=== PATIENT | male | born 1960 | race Caucasian/White ===

== ENCOUNTER 2020-02-03 02:12 | Emergency (ER) | payer SELFPAY ==
[2020-02-03 02:12] VITALS: BMI 20.6
--- NOTE | 2020-02-03 02:16 | XR_ITS ---
WS: [id number] EXAM: AP CHEST: PORTABLE UPRIGHT DATE OF EXAM: 02/03/2020, 0218 hours COMPARISON: NONE HISTORY: Patient is 59 years old with weakness in the legs. History of chronic lung disease. FINDINGS: The cardiac silhouette is normal in size. The mediastinal contours are normal. The pulmonary vas cularity is normal. Chronic lung changes are seen with slight hyperinflation. Some degree of underly ing fibrosis felt to be present. Lungs are clear of consolidation. The right costophrenic angle has b een clipped from the examination. Subacute rib fractures are seen posterior inferior lateral on the r ight. There is no effusion or pneumothorax. XR/XR chest 1V portable [id number] IMPRESSION: Chronic lung changes. No acute pulmonary disease. What appears to be subacute t o chronic right posterior lateral lower rib fractures.
--- NOTE | 2020-02-03 02:16 | CTR_ITS ---
PROCEDURE INFORMATION: Exam: CT Head Without Contrast Exam date and time: 02/03/2020 2:17 AM Age: 59 years old Clinical indication: Weakness, extremity; Bilateral; Patient HX: HX prior stroke TECHNIQUE: Imaging protocol: Computed tomography of the head without contrast. Radiation optimization: All CT scans at this facility use at least one of these dose optimization techniques: automated exposure control; mA and/or kV adjustment per patient size (includes targeted exams where dose is matched to clinical indication); or iterative reconstruction. COMPARISON: No relevant prior studies available. RADIATION DOSE METRICS: Total DLP (mGy-cm): 790.28 FINDINGS: Brain: No acute intracranial hemorrhage or mass effect. There is decreased attenuation in the periventricular white matter, likely from microvascular disease. There are small old lacunar infarcts in the basal ganglia regions bilaterally. Large old infarct predominantly involving white matter in the left frontal, parietal, and occipital regions. No definite acute infarct by CT. MRI could be more sensitive/specific for detection, as clinically directed. Ventricles: Ventricle size is normal for age. Bones/joints: No definite acute skull fracture. Sinuses: Included paranasal sinuses are essentially clear. Mastoid air cells: No significant acute finding. Vasculature: Vascular calcifications in the internal carotid and vertebral basilar systems. CT/CT head wo con* [id number] IMPRESSION: 1. No acute intracranial hemorrhage or mass effect. 2. Changes of microvascular disease, and old infarcts, details above. 3. No definite acute infarct by CT, see above. 4. Other findings discussed above. Radiation Dose CTDIVOL = (mGy): DLP = 790.28 (mGy-cm)
--- NOTE | 2020-02-03 02:17 | ECG_ITS ---
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 Measurements Intervals [place] Rate: 74 P: 79 VT: 138 QRS: 71 QRSD: 98 T: 72 QT: 395 QTc: 439 Interpretive Statements SINUS RHYTHM Early repolarization No previous ECG available for comparison Electronically Signed On 02-03-2020 22:41:51 CDT by Krish Gutierrez M.D. [id number]
--- NOTE | 2020-02-03 02:18 | W.ED.WEAKNES ---
HPI - Weakness General: Chief complaint: Weakness Stated complaint: WEAKNESS Time Seen by Provider: 02/03/20 02:12 Source: patient and EMS Mode of arrival: EMS Limitations: no limitations History of Present Illness: HPI Narrative: 59-year-old male has a history of stroke along with alcohol abuse. Patient has been at [facility] for 3 days and states he has had increased weakness over the last 3 days. He states been having difficulty walking. Patient states that he is unable to get out of his bed or walk. He has no focal deficits. Patient denies any fever. Denies any vomiting. MD Complaint: generalized weakness Associated symptoms: Denies chest pain, chills, dysuria, easy bruising, fever(s), nausea or vomiting Review of Systems Const: Denies: fever(s), chills, body aches or change in appetite Eyes: Denies: blurry vision or eye discomfort ENMT: Denies: throat pain or dental pain Card: Denies: chest pain Resp: Denies: dyspnea GI: Denies: abdominal pain, nausea, vomiting or diarrhea : Denies: dysuria Musc: Denies: neck pain or back pain Skin/Breast: Denies: rash Neuro: Reports: weakness in extremities Psych: Denies: depression Nikolay/Lymph: Denies: easy bruising All/Imm: Denies: urticaria PFSH ED PFSH: Social History Smoking and tobacco status: current every day smoker cigarettes Packs smoked per day: 1.5 Number of cigarettes per day: >20 Alcohol intake: former Desire information about alcohol rehabilitation?: No Last alcohol use date: 01/30/20 Substance/Drug Use: never Current gender identity: Male Physical Exam Const: COMMON NORMALS: no acute distress, patient oriented x3 and healthy appearing HENMT: COMMON NORMALS: normocephalic and atraumatic HEAD & SCALP: normocephalic and atraumatic Eye: COMMON NORMALS: Equal, round and reactive pupils present and EOMs intact bilaterally PUPIL: Yes Equal, round and reactive pupils present Neck/C-Spine: COMMON NORMALS: full ROM and supple Chest: COMMONS NORMALS: normal inspection of the chest and normal palpation of entire chest wall Resp: COMMON NORMALS: normal respiratory effort, No retractions, No use of accessory muscles and clear to auscultation bilaterally AUSCULTATION: clear to auscultation bilaterally Cardio: COMMON NORMALS: regular rate, regular rhythm and No murmurs present (Cardio) RATE: regular rate RHYTHM: regular rhythm GI: COMMON NORMALS: Normal to inspection, nondistended, normoactive bowel sounds present, Soft to palpation, non-tender and no masses PALPATION: Yes Soft to palpation Extremity: COMMON NORMALS: normal to inspection NARRATIVE EXTREMITY EXAM: slight weakness in all extremities Neuro: COMMON NORMALS: patient oriented x3, moves all extremities and no focal motor deficits Psych: COMMON NORMALS: mental status grossly normal, Normal thought process present and cooperative THOUGHT PROCESS: Normal thought process present Skin: COMMON NORMALS: no rashes or lesions noted and no wounds GENERAL SKIN EXAM: no rashes or lesions noted Course Vital Signs: Vital signs: Vital Signs Pulse Rate 77 02/03/20 05:44 Respiratory Rate 14 02/03/20 05:44 Blood Pressure 126/70 02/03/20 05:44 Pulse Oximetry 98 02/03/20 05:44 MDM - Weakness MDM Narrative: Medical decision making narrative: Aston presents here with generalized weakness and is improved while he has been here. Patient has no focal deficits no signs of a stroke. Patient's lab work and CT scan are normal here. Patient is stable for discharge and will discharge back to [facility] at this time. Lab Data: Labs: Lab Results 02/03/20 02/03/20 Range/Units 01:59 01:59 WBC 10.3 H (4.0-10.0) 10^3/ uL RBC 3.65 L (4.1-5.3) 10^6/u L Hgb 12.2 (11.7-16.6) g/dL Hct 37.1 L (42.0-52.0) % MCV 101.6 H (80-94) fL MCH 33.4 (28.0-34.0) pg MCHC 32.9 (30.0-36.0) g/dL RDW 17.6 H (12.1-15.1) % Plt Count 255 (130-400) 10^3/c mm MPV 10.3 (7.4-10.4) fL Neut % (Auto) 67.7 % Lymph % (Auto) 24.4 % [place] % (Auto) 6.4 % Eos % (Auto) 0.8 % Baso % (Auto) 0.4 % Neut # (Auto) 6.97 (1.8-7.7) 10^3/u L Lymph # (Auto) 2.5 (0.8-4.8) 10^3/u L [place] # (Auto) 0.7 (0.2-0.9) 10^3/u L Eos # (Auto) 0.1 (0.0-0.8) 10^3/u L Baso # (Auto) 0.0 (0.0-0.1) 10^3/u L Nucleated RBC % (a uto) 0 % Nucleated RBCs # 0.0 /100WBC Sodium 140 (136-145) mmol/L Potassium 3.8 (3.5-5.1) mmol/L Chloride 105 (98-107) mmol/L Carbon Dioxide 26 (22-29) mmol/L Anion Gap 12.8 (5-19) BUN 13 (6-20) mg/dL Creatinine 0.7 (0.7-1.2) mg/dL GFR Calculation 115.4 (90-130) mL/min Glucose 113 (65-115) mg/dL Calculated Osmolal ity 287 (285-295) mOsm/k g Calcium 9.1 (8.5-10.5) mg/dL Magnesium 1.3 L (1.7-2.3) mg/dL Total Bilirubin 0.4 (0.15-1.2) mg/dL AST 18 (0-40) U/L ALT 18 (0-41) U/L Alkaline Phosphata se 68 (40-130) IU/L Total Protein 6.7 (6.6-8.7) g/dL Albumin 3.9 (3.5-5.2) g/dL Globulin 2.8 (1.3-4.6) g/dL Ethyl Alcohol < 10 (0-10) mg/dL Imaging Data^: CXR: Attestation: I personally reviewed and interpreted this imaging study as follows: My impression: no acute abnormality CT Head: Radiologist's impression: Reason: weakness [address] [address] [address] Scan Report Signed Patient: Aston Diamond Unit #: [id number] : 1960 Age/Sex: 59 / M ADM Date: 02/03/20 Loc: ER Room/Bed: Attending Dr: Ordering Provider/Ordering MD: Francis Harper MD Date of Service: 02/03/20 Procedure(s): CT head wo con* [id number] Accession Number(s): [id number] Report Number: [id number] PROCEDURE INFORMATION: Exam: CT Head Without Contrast Exam date and time: 02/03/2020 2:17 AM Age: 59 years old Clinical indication: Weakness, extremity; Bilateral; Patient HX: HX prior stroke TECHNIQUE: Imaging protocol: Computed tomography of the head without contrast. Radiation optimization: All CT scans at this facility use at least one of these dose optimization techniques: automated exposure control; mA and/or kV adjustment per patient size (includes targeted exams where dose is matched to clinical indication); or iterative reconstruction. COMPARISON: No relevant prior studies available. RADIATION DOSE METRICS: Total DLP (mGy-cm): 790.28 FINDINGS: Brain: No acute intracranial hemorrhage or mass effect. There is decreased attenuation in the periventricular white matter, likely from microvascular disease. There are small old lacunar infarcts in the basal ganglia regions bilaterally. Large old infarct predominantly involving white matter in the left frontal, parietal, and occipital regions. No definite acute infarct by CT. MRI could be more sensitive/specific for detection, as clinically directed. Ventricles: Ventricle size is normal for age. Bones/joints: No definite acute skull fracture. Sinuses: Included paranasal sinuses are essentially clear. Mastoid air cells: No significant acute finding. Vasculature: Vascular calcifications in the internal carotid and vertebral basilar systems. CT/CT head wo con* [id number] IMPRESSION: 1. No acute intracranial hemorrhage or mass effect. 2. Changes of microvascular disease, and old infarcts, details above. 3. No definite acute infarct by CT, see above. 4. Other findings discussed above. 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
[2020-02-03 02:29] LABS: Basophils % 0.4 %; Eosinophils # 0.1 10^3/uL (0.0-0.8); Eosinophils % 0.8 %; Hematocrit 37.1 % (42.0-52.0); Hemoglobin 12.2 g/dL (11.7-16.6); Lymphocytes # 2.5 10^3/uL (0.8-4.8); Lymphocytes % 24.4 %; Mean Corpuscular HGB Conc 32.9 g/dL (30.0-36.0); Mean Corpuscular Hemoglobin 33.4 pg (28.0-34.0); Mean Corpuscular Volume 101.6 fL (80-94); Mean Platelet Volume 10.3 fL (7.4-10.4); Monocytes # 0.7 10^3/uL (0.2-0.9); Monocytes % 6.4 %; Neutrophils # 6.97 10^3/uL (1.8-7.7); Neutrophils % 67.7 %; Nucleated Red Blood Cells % 0 %; Platelet Count 255 10^3/cmm (130-400); Red Blood Count 3.65 10^6/uL (4.1-5.3); Red Cell Distribution Width 17.6 % (12.1-15.1); White Blood Count 10.3 10^3/uL (4.0-10.0)
[2020-02-03 02:45] LABS: Alanine Aminotransferase 18 U/L (0-41); Albumin Level 3.9 g/dL (3.5-5.2); Alkaline Phosphatase 68 IU/L (40-130); Anion Gap 12.8 (5-19); Aspartate Amino Transferase 18 U/L (0-40); Blood Urea Nitrogen 13 mg/dL (6-20); Calcium 9.1 mg/dL (8.5-10.5); Carbon Dioxide 26 mmol/L (22-29); Chloride 105 mmol/L (98-107); Globulin 2.8 g/dL (1.3-4.6); Glomerular Filtration Rate 115.4 mL/min (90-130); Glucose 113 mg/dL (65-115); Magnesium 1.3 mg/dL (1.7-2.3); Osmolality Calculated 287 mOsm/kg (285-295); Potassium 3.8 mmol/L (3.5-5.1); Sodium 140 mmol/L (136-145); Total Bilirubin 0.4 mg/dL (0.15-1.2); Total Protein 6.7 g/dL (6.6-8.7)
[2020-02-03] MEDS: sodium chloride 0.9% 1,000 ML 999 ML IV (03:00)
[2020-02-03 03:08] LABS: Alcohol Level < 10 mg/dL (0-10)
--- NOTE | 2020-02-03 03:21 | PC.NURSE ---
Radha from [facility] requests that ED staff call them at if the patient is going to be discharged. [facility] will provide a ride home for him.
--- NOTE | 2020-02-03 04:10 | PC.NURSE ---
This RN spoke with Radha at the [facility] to discuss the patient's baseline ambulaton capabilities. Per Radha, the patient is able to ambulate, from [place] to [place] without a walker or a cane. It takes him a long time and is gate is almost shuffling but he can manage to walk on his own. Radha continued to discuss the patient has been alcohol free for the past four days. He has remained on a Librium taper. Patient has developed the bilateral weakness starting today which prompted Radha to call EMS as the patient states, I can't walk . Upon EMS arrival patient began gathering all belongings to bring to the hospital. Per EMS, the patient was not planning on returning to the Rehab Facility.
--- NOTE | 2020-02-03 04:38 | PC.NURSE ---
Patient unable to provide urine sample at this time.
--- NOTE | 2020-02-03 05:43 | PC.NURSE ---
[facility] They will arrange transport for the patient from the waiting room to the facility.
[2020-02-03 05:44] VITALS: BP 126/70; PULSE 77; RESP 14; O2SAT 98
== END 2020-02-03 05:46 | disposition home or self-care (01) ==
PROVIDERS: Emergency Provider Emergency Medicine
DX: R53.1 Weakness (principal); F17.210 Nicotine dependence, cigarettes, uncomplicated
CPT/HCPCS: 12345; 70450; 71045; 80053; 80307; 83735; 85025; 93005; 96361; 96374; 99283; 99284; J3411; J7030